=== PATIENT | male | born 1975 | race Caucasian/White ===

== ENCOUNTER 2017-03-05 17:30 | Emergency (ER) | payer BC ==
[~2017-03-05] VITALS: Ht 175.3 cm; Wt 127.3 kg
[~2017-03-05 17:30] MED LIST: EXCEDRIN1 TAB PO; GLUCOPHAGE500 MG/TAB PO; LORTAB 5/500 501 TAB PO; NEXIUM 40MG40 MG PO; NO HOME MEDICATIONS; PENICILLIN250 MG PO
[2017-03-05 17:32] VITALS: TEMP 99.6
[2017-03-05] MEDS ORDERED: PERCOCET 325 MG1 TA2 PO (19:35)
[2017-03-05] MEDS ORDERED: CLEOCIN HCL300 MG PO (19:35)
[2017-03-05] MEDS ORDERED: GLUCOPHAGE500 MG/TAB PO (19:35)
[2017-03-05 20:03] VITALS: BP 147/84; PULSE 81
== END 2017-03-05 20:03 | disposition home or self-care (01) ==
LOC: COL.ER 17:30
DX: N49.2 Inflammatory disorders of scrotum (principal); E11.65 Type 2 diabetes mellitus with hyperglycemia; F17.210 Nicotine dependence, cigarettes, uncomplicated; Z91.19 Patient's noncompliance with other medical treatment and regimen
CPT/HCPCS: J1170; J2270